=== PATIENT | female | born 1985 | race Caucasian/White ===

== ENCOUNTER → 2018-03-26 13:15 | Outpatient (CLI) | payer BC, SELFPAY ==
[2017-03-12 11:31] VITALS: BMI 18.8
[2018-03-31 09:26] LABS: HPV Reflexed? NOT INDICATED
== END ==
PROVIDERS: Referring Provider Obstetrics & Gynecology; Visit Provider Obstetrics & Gynecology
DX: Z12.4 Encounter for screening for malignant neoplasm of cervix (principal)
CPT/HCPCS: 88175; G0145

== ENCOUNTER → 2021-12-25 | Outpatient (CLI) | payer OTHER, SELFPAY ==
[2021-12-25 11:32] LABS: T4 Free Direct 0.87 ng/dL (0.76-1.46); Thyroid Stim Hormone (TSH) 4.19 uIU/mL (0.358-3.74)
[2021-12-31 16:02] LABS: HPV APTIMA, High Risk Negative (Negative)
== END | disposition home or self-care (01) ==
LOC: WOBLAB 10:46
PROVIDERS: Visit Provider Obstetrics & Gynecology
DX: Z12.4 Encounter for screening for malignant neoplasm of cervix (principal); R53.83 Other fatigue
CPT/HCPCS: 36415; 84439; 84443; 87624; 88175; G0145